=== PATIENT | female | born 2000 | race Caucasian/White ===

== ENCOUNTER 2024-02-09 05:37 | Emergency (ER) | payer BC, SELFPAY ==
--- NOTE | ~2024-02-09 | US_ITS ---
EXAMINATION: US PELVIS CLINICAL INFORMATION: Reason for Exam LLQ pain, hx ovarian cysts COMPARISON: 11/11/2013 TECHNIQUE: Ultrasound of the pelvis is performed using both transabdominal and transvaginal transducers along with Doppler. Transvaginal imaging is performed due to inadequate visualization transabdominally. FINDINGS: The retroverted uterus measures 6.7 cm in length and 4.4 x 4.9 cm in AP and transverse dimensions. Endometrial stripe measures 0.9 cm in thickness. The right ovary measures 4.0 x 2.0 x 2.7 cm. Multiple follicles are present. There is a 2.8 x 1.7 x 1.5 cm mildly hypoechoic structure in the right ovary which may represent a hemorrhagic cyst. There is an additional thick-walled appearing structure in the right ovary measuring 1.2 x 1.2 x 1.5 cm, possibly a corpus luteal cyst. The left ovary measures 3.1 x 1.6 x 2.3 cm. There is a left adnexal cyst measuring 1.0 x 0.8 x 0.7 cm. There is also a mildly hyperechoic structure in the left ovary measuring 0.7 x 0.6 x 0.9 cm, of indeterminate etiology. Small to moderate amount of free fluid is noted. US/US pelvic and transvaginal IMPRESSION: 1. Bilateral ovarian structures as described above, including a 2.8 cm mildly hypoechoic structure in the right ovary which may represent a hemorrhagic cyst, though is not classic in appearance. Follow-up ultrasound in 6-12 weeks is recommended to assess for resolution. 2. Mildly hyperechoic structure in the left ovary measuring up to 0.9 cm, of indeterminate etiology. A small dermoid cyst is a possibility, and attention on follow-up ultrasound is recommended. 3. Small to moderate amount of free fluid in the pelvis, nonspecific and which may be physiologic or could be due to ovarian cyst rupture. Electronically signed by: Regan Oswald MD 02/09/2024 09:20 AM EDT
[2024-02-09 05:43] VITALS: BP 106/59; PULSE 71; RESP 18; TEMP 36.5; O2SAT 97; BMI 21.1
[2024-02-09 06:05] LABS: Basophils Absolute Auto 0.1 X10*3/uL (0.0-0.2); Basophils Percent Auto 0.7 % (0-2); Eosinophils Absolute Auto 0.2 X10*3/uL (0.0-0.4); Hematocrit 32.8 % (37.0-47.0); Imm Gran Abs Auto 0.02 X10*3/uL (0.00-0.03); Imm Gran Pct Auto 0.2 % (0.0-0.4); Lymphocytes Percent Auto 30.7 % (20-40); MANUAL DIFF FLAG NO; Mean Corpuscular HGB Conc 33.5 g/dl (31.0-35.0); Mean Corpuscular Hemoglobin 26.4 pg (27.0-33.0); Mean Corpuscular Volume 78.8 fL (80.0-98.0); Mean Platelet Volume 9.9 fL (9.4-12.3); Monocytes Absolute Auto 0.9 X10*3/uL (0.1-1.2); Monocytes Percent Auto 8.9 % (2-11); Neutrophils Absolute Auto 5.7 x10*3/uL (2.0-8.3); Neutrophils Percent Auto 57.5 % (45-73); Platelet Count 196 X10*3/uL (160-400); Red Blood Count 4.16 X10*6/uL (4.20-5.50); Red Cell Distribution Width 14.3 % (11.0-16.0); White Blood Count 9.8 X10*3/uL (4.8-10.8)
[2024-02-09 06:20] LABS: Alanine Aminotransferase 9 U/L (0-31); Albumin Level 4.1 g/dL (3.5-5.0); Alkaline Phosphatase 55 U/L (39-117); Anion Gap 11 (12-20); Aspartate Amino Transferase 15 U/L (5-31); Bilirubin Total 0.3 mg/dL (0.0-1.0); Blood Urea Nitrogen 9 mg/dL (9-16); Carbon Dioxide 23 mmol/L (22-29); Chloride 110 mmol/L (96-108); Estimated Glomerular Filt Rate > 60; Glucose Random 97 mg/dL (60-115); Potassium 3.4 mmol/L (3.3-5.1); Sodium 141 mmol/L (135-145); Total Protein 6.8 g/dL (6.5-8.0)
--- NOTE | 2024-02-09 06:28 | ED_ITS ---
HPI - General Adult General Chief complaint: General Medical Stated complaint: Severe Menstrual cramps Time Seen by Provider: 02/09/24 06:27 Source: patient Mode of arrival: ambulatory Limitations: no limitations History of Present Illness ED Provider: erin ISSA narrative: Patient is a 24-year-old female with history of ruptured ovarian cyst 2 years ago presenting to the emergency department with complaint of left lower abdominal pain as well as lower back pain for the past few hours. States she began her menstrual period yesterday. Reports normal vaginal bleeding, denies any abnormal vaginal discharge. Also reports associated nausea and vomiting, diarrhea. Denies constipation. Denies fevers. MD complaint: abdominal pain Onset (ago): hour(s) Location: abdomen Radiation: back Severity: severe Quality: aching Pain Consistency: constant Relieving factors: none Associated symptoms: nausea/vomiting Treatments prior to arrival: none Related Data Previous Rx's ?Medication ?Instructions ?Recorded nitrofurantoin macrocrystal 100 mg 100 mg PO BID 5 days #10 caps 02/09/24 capsule Allergies Allergy/AdvReac Type Severity Reaction Status Date / Time No Known Allergies Allergy Verified 02/09/24 05:46 Review of Systems 2 Review of Systems: As per HPI. Yes all other systems are reviewed and are negative Constitutional: Constitutional: Reports as per HPI [facility] Social History Social History Advance Directives: No Advance Directives Information Provided: Yes Do you have a plan to hurt others: No Plan Physical Exam ED Vital Signs: Vital Signs - 24 hr 02/09/24 05:43 02/09/24 08:23 Temperature 97.7 F 97.8 F Pulse Rate 71 62 Respiratory Rate 18 16 Blood Pressure 106/59 L 99/59 L Pulse Oximetry 97 100 Oxygen Delivery Method Room Air Room Air BMI result Body Mass Index 21.1 Vital signs have been reviewed and appear to be correct. Blood pressure normal. Heart rate normal. Respiratory rate normal. Temperature normal. Oxygen saturation normal. Const General: cooperative, healthy appearing and no acute distress Orientation/consciousness: oriented to person, oriented to place, oriented to time and patient oriented x3 Limitations: no limitations HENMT Head: Yes normocephalic and Yes atraumatic Ears: external ears normal General nose exam: Normal external nose present Face and sinus: Yes face symmetric Mouth: oropharynx normal and moist mucous membranes Throat: Yes uvula midline Eyes Pupils: Equal, round and reactive pupils present Neck Neck: Yes normal visual inspection and Yes supple Resp Effort & Inspection: normal respiratory effort and able to speak in complete sentences Auscultation: clear to auscultation bilaterally Cardio Rate: regular rate Rhythm: regular rhythm Heart sounds: S1 normal heart sound present and S2 normal heart sound present GI Palpation (GI): Soft to palpation, Tenderness to palpation present (GI) in the LLQ, no guarding and No Rebound tenderness present Auscultation: normoactive bowel sounds General: Yes no CVA tenderness Back/Spine/Pelvis Back: no CVA tenderness Skin General skin exam: elasticity normal and turgor normal Neuro General: oriented to person, oriented to place, oriented to time, patient oriented x3, moves all extremities, no focal motor deficits and CN's II-XI intact bilaterally Cranial nerves: Yes Equal, round and reactive pupils present Cognition (Neuro): normal cognition Extrem General: Yes full ROM, Yes no pedal edema and Yes no calf tenderness Psych Mental Status: mental status grossly normal Affect: normal affect Thought process: Normal thought process present Medications Administered Discontinued Medications Generic Name Dose Route Start Last Admin Trade Name Gopiq PRN Reason Stop Dose Admin Ketorolac Tromethamine 30 mg 02/09/24 07:04 02/09/24 07:11 Ketorolac Tromethamine 30 Mg/Ml Vial IM 02/09/24 07:05 30 mg ONCE ONE Administration Ondansetron HCl 4 mg 02/09/24 07:04 02/09/24 07:11 Ondansetron Odt 4 Mg Tab.Rapdis TRANSLINGU 02/09/24 07:05 4 mg ONCE ONE Administration Medical Decision Making Medical Decision Making MDM Narrative: Patient is a 24-year-old female with history of ruptured ovarian cyst 2 years ago presenting to the emergency department with complaint of left lower abdominal pain as well as lower back pain for the past few hours. On exam patient is awake, A+Ox3, VS WNL, afebrile, normal neurological exam without focal deficits, physical exam findings as above. Given reported symptoms and physical exam findings, initial differential includes ovarian torsion, cyst, dysfunctional uterine bleeding. Labs notable for no leukocytosis, slight anemia, negative HCG. Ultrasound notable for 2.8cm hypoechoic structure right ovary which may represent hemorrhagic cyst, 0.9cm hypoechoic structure left ovary, and small-moderate free fluid. My interpretation is in agreement with the radiologist's interpretation. Given presentation, feel results most likely represent ruptured ovarian cyst. Urinalysis notable for trace leukocytes, 21- 50WBCs, 0-2 epithelials. Results discussed with patient and through shared decision making, will treat for UTI. Patient states that she does not currently have an OBGYN, will refer to Dr. Witt. Return precautions discussed at bedside. Patient verbalized understanding of and agreement with plan. Differential Diagnosis Differential Diagnoses: The differential diagnosis associated with the presentation includes As per [facility] Admission/Observation Consideration of admission/observation: Escalation of care including admission/observation considered Patient would have been admitted to the hospital had their work up had any findings where hospital admission was appropriate and their clinical presentation warranted hospital admission. Lab Data [facility] Lab Attestation statement: I reviewed the patient's lab results. As per [facility] 02/09/24 06:01 02/09/24 06:01 Labs: Lab Results 02/09/24 02/09/24 Range/Units 06:01 07:12 WBC 9.8 (4.8-10.8) X10*3/uL RBC 4.16 L (4.20-5.50) X10*6/uL Hgb 11.0 L (12.0-16.0) g/dl Hct 32.8 L (37.0-47.0) % MCV 78.8 L (80.0-98.0) fL MCH 26.4 L (27.0-33.0) pg MCHC 33.5 (31.0-35.0) g/dl RDW 14.3 (11.0-16.0) % Plt Count 196 (160-400) X10*3/uL MPV 9.9 (9.4-12.3) fL Immature Gran % (Auto) 0.2 (0.0-0.4) % Neut % (Auto) 57.5 (45-73) % Lymph % (Auto) 30.7 (20-40) % [place] % (Auto) 8.9 (2-11) % Eos % (Auto) 2.0 (0-4) % Baso % (Auto) 0.7 (0-2) % Lymph # (Auto) 3.0 (1.2-4.9) X10*3/uL [place] # (Auto) 0.9 (0.1-1.2) X10*3/uL Eos # (Auto) 0.2 (0.0-0.4) X10*3/uL Baso # (Auto) 0.1 (0.0-0.2) X10*3/uL Abs Immat Gran (auto) 0.02 (0.00-0.03) X10*3/uL Absolute Neuts (auto) 5.7 (2.0-8.3) x10*3/uL Absolute Nucleated RBC 0.000 (0.0-0.012) X10*3/uL Nucleated RBC % (auto) 0.0 (0.0-0.2) /100WBC Sodium 141 (135-145) mmol/L Potassium 3.4 (3.3-5.1) mmol/L Chloride 110 H (96-108) mmol/L Carbon Dioxide 23 (22-29) mmol/L Anion Gap 11 L (12-20) BUN 9 (9-16) mg/dL Creatinine 0.80 (0.5-1.4) mg/dL Estim Creat Clear Calc 85.0 Estimated GFR > 60 Random Glucose 97 (60-115) mg/dL Calcium 9.0 (8.4-10.2) mg/dL Total Bilirubin 0.3 (0.0-1.0) mg/dL AST 15 (5-31) U/L ALT 9 (0-31) U/L Alkaline Phosphatase 55 (39-117) U/L Total Protein 6.8 (6.5-8.0) g/dL Albumin 4.1 (3.5-5.0) g/dL Beta HCG, Quant < 2 mIU/mL Urine Color RED Urine Appearance Hazy Urine pH 6.0 (5.0-9.0) Ur Specific [place] 1.015 (1.005-1.025) Urine Protein 30 (1+) H (Neg-Trace) mg/dL Urine Glucose (UA) Negative (Negative) mg/dL Urine Ketones Negative (Negative) mg/dL Urine Blood Large (3+) H (Negative) Urine Nitrite Negative (Negative) Ur Leukocyte Esterase Trace H (Negative) Urine RBC >20 H (0-2) /HPF Urine WBC 21-50 H (0-5) /HPF Ur Squamous Epith Cells 0-2 (0-2) /HPF Urine Bacteria Trace (None Seen) Hyaline Casts 0-2 (0-2) /LPF Independent Interpretation I performed an independent interpretation of an: Ultrasound Interpretation: Ultrasound notable for 2.8cm hypoechoic structure right ovary which may represent hemorrhagic cyst, 0.9cm hypoechoic structure left ovary, and small- moderate free fluid. Radiology Impression Discussion of test interpretation with radiology: I have reviewed the radiologist's reading. Radiologist Impression: US/US pelvic and transvaginal IMPRESSION: 1. Bilateral ovarian structures as described above, including a 2.8 cm mildly hypoechoic structure in the right ovary which may represent a hemorrhagic cyst, though is not classic in appearance. Follow-up ultrasound in 6-12 weeks is recommended to assess for resolution. 2. Mildly hyperechoic structure in the left ovary measuring up to 0.9 cm, of indeterminate etiology. A small dermoid cyst is a possibility, and attention on follow-up ultrasound is recommended. 3. Small to moderate amount of free fluid in the pelvis, nonspecific and which may be physiologic or could be due to ovarian cyst rupture. External Record Review External record reviewed: Inpatient record, Office record and Outpatient record Prescription Management I considered prescription management with: Antibiotic Discharge Plan Discharge Clinical Impression: Abdominal pain, Urinary tract infection Patient Disposition: Home, Self-Care Instructions: Ovarian Cyst (ED), Acute Abdominal Pain (DC), Ruptured Ovarian Cyst (ED), Urinary Tract Infection in Women (DC) Additional Instructions: You were evaluated in the emergency department today for abdominal pain which is likely due to a ruptured ovarian cyst. We recommend that you have a follow-up ultrasound in 6-12 weeks. You are being referred to Dr. Witt, [employer], please call his office to schedule an appointment. You are being treated for a urinary tract infection with antibiotics, please complete the full course as prescribed. Return to the emergency department if you develop worsening pain, vaginal bleeding soaking through more than 1 pad per hour, abnormal vaginal discharge, fever or any other concerning symptoms. Prescriptions: New nitrofurantoin macrocrystal 100 mg capsule 100 mg PO BID 5 Days Qty: 10 0RF Rx Instructions: must administer with a meal/food Referrals: Ronald Witt MD [Physician] - Print Language: Greenlandic
[2024-02-09 06:57] LABS: HCG Quantitative < 2 mIU/mL
[2024-02-09] MEDS: Ketorolac Tromethamine 30 MG/ML VIAL IM (07:11)
[2024-02-09] MEDS: Ondansetron ODT 4 MG TAB.RAPDIS TRANSLINGU (07:11)
[2024-02-09 07:18] LABS: Appearance Urine Hazy; Color Urine RED; Glucose Urine UA Negative (Negative); Leukocyte Esterase Urine Trace (Negative); Nitrite Urine Negative (Negative); Specific Gravity - Urine 1.015 (1.005-1.025); UMIC TRIGGER UACC YES; Urine Blood Large (3+) (Negative); Urine Ketones Negative (Negative); Urine Protein 30 (1+) mg/dL (Neg-Trace)
[2024-02-09 07:35] LABS: Bacteria Urine Trace (None Seen); Hyaline Casts Urine 0-2 /LPF (0-2); RBC Urine >20 /HPF (0-2); Squamous Epithelial Cell Urine 0-2 /HPF (0-2); UACC Culture Trigger YES; WBC Urine 21-50 /HPF (0-5)
[2024-02-09 08:23] VITALS: BP 99/59; PULSE 62; RESP 16; TEMP 36.6; O2SAT 100
[2024-02-09 09:53] VITALS: BP 100/68; PULSE 83; RESP 16; TEMP 36.8; O2SAT 98
[2024-02-09 10:05] VITALS: BP 100/68; PULSE 83; RESP 16; TEMP 36.8; O2SAT 98
== END 2024-02-09 10:06 | disposition home or self-care (01) ==
PROVIDERS: Registered Nurse Emergency; Emergency Provider Emergency Medicine
DX: N39.0 Urinary tract infection, site not specified (principal); R10.32 Left lower quadrant pain; R11.2 Nausea with vomiting, unspecified
CPT/HCPCS: 36415; 76830; 76856; 80053; 81001; 84702; 85025; 87086; 96372; 99283; 99284; J1885

== ENCOUNTER 2024-08-18 18:08 | Emergency (ER) | payer BC, SELFPAY ==
[2024-08-18 18:14] VITALS: BP 111/73; PULSE 105; RESP 18; TEMP 36.6; O2SAT 98; BMI 19.2
--- NOTE | 2024-08-18 18:15 | ECG_ITS ---
Test Reason : anxiety Blood Pressure : */* mmHG Vent. Rate : 95 BPM Atrial Rate : 95 BPM P-R Int : 96 ms QRS Dur : 78 ms QT Int : 386 ms P-R-T Axes : -15 61 18 degrees QTcB Int : 485 ms Sinus rhythm with sinus arrhythmia with short OK Nonspecific ST and T wave abnormality Borderline ECG No previous ECGs available Referred By: Janell Schmitz Electronically Signed By: SANDRA OLVERA
[2024-08-18 18:36] LABS: MANUAL DIFF FLAG NO
[2024-08-18 18:52] LABS: Basophils Absolute Auto 0.1 X10*3/uL (0.0-0.2); Basophils Percent Auto 0.9 % (0-2); Eosinophils Percent Auto 0.3 % (0-4); Hematocrit 35.6 % (37.0-47.0); Hemoglobin 11.9 g/dl (12.0-16.0); Imm Gran Abs Auto 0.07 X10*3/uL (0.00-0.03); Imm Gran Pct Auto 1.1 % (0.0-0.4); Lymphocytes Absolute Auto 2.5 X10*3/uL (1.2-4.9); Lymphocytes Percent Auto 37.5 % (20-40); Mean Corpuscular HGB Conc 33.4 g/dl (31.0-35.0); Mean Corpuscular Hemoglobin 25.8 pg (27.0-33.0); Mean Corpuscular Volume 77.1 fL (80.0-98.0); Mean Platelet Volume 10.1 fL (9.4-12.3); Monocytes Absolute Auto 0.6 X10*3/uL (0.1-1.2); Monocytes Percent Auto 8.7 % (2-11); NRBC Pct Auto 0.3 /100WBC (0.0-0.2); Neutrophils Absolute Auto 3.4 x10*3/uL (2.0-8.3); Neutrophils Percent Auto 51.5 % (45-73); Platelet Count 246 X10*3/uL (160-400); Red Blood Count 4.62 X10*6/uL (4.20-5.50); Red Cell Distribution Width 15.2 % (11.0-16.0); White Blood Count 6.5 X10*3/uL (4.8-10.8)
[2024-08-18 18:58] LABS: Alanine Aminotransferase 16 U/L (0-31); Albumin Level 4.5 g/dL (3.5-5.0); Alkaline Phosphatase 50 U/L (39-117); Anion Gap 14 (12-20); Aspartate Amino Transferase 21 U/L (5-31); Bilirubin Total 0.6 mg/dL (0.0-1.0); Blood Urea Nitrogen 7 mg/dL (9-16); Calcium 9.1 mg/dL (8.4-10.2); Carbon Dioxide 19 mmol/L (22-29); Chloride 109 mmol/L (96-108); Estimated Glomerular Filt Rate > 60; Glucose Random 95 mg/dL (60-115); Magnesium 2.1 mg/dL (1.6-2.6); Potassium 3.4 mmol/L (3.3-5.1); Sodium 139 mmol/L (135-145); Total Protein 8.1 g/dL (6.5-8.0)
[2024-08-18 19:04] LABS: HCG Quantitative < 2 mIU/mL
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
[2024-08-18] MEDS: LORazepam 1 MG TABLET PO (19:56)
[2024-08-18 21:36] LABS: D Dimer High Sensitivity < 150 NG/ML
--- NOTE | 2024-08-18 21:53 | PC.NURSE ---
Pt reports decreased anxiety and feeling better after being medicated. Monitoring is ongoing.
[2024-08-18 22:06] VITALS: BP 105/66; PULSE 78; RESP 14; TEMP 36.6; O2SAT 99
== END 2024-08-18 22:07 | disposition home or self-care (01) ==
PROVIDERS: Physician Assistant Medical; Emergency Provider Emergency Medicine
DX: F41.9 Anxiety disorder, unspecified (principal); R06.4 Hyperventilation; Z79.899 Other long term (current) drug therapy
CPT/HCPCS: 36415; 80053; 83735; 84702; 85025; 85379; 93005; 99284; 99285; S9485

== ENCOUNTER → 2024-08-18 18:15 | Outpatient (BNV) | payer BC, SELFPAY | PROVIDERS: Emergency Provider Emergency Medicine; Visit Provider Internal Medicine | DX: I45.6 Pre-excitation syndrome (principal) | CPT/HCPCS: 93010 ==

== ENCOUNTER 2024-09-04 00:08 | Emergency (ER) | payer BC, SELFPAY ==
[2024-09-04 00:13] VITALS: BP 103/67; PULSE 80; O2SAT 100
[2024-09-04 00:19] VITALS: BP 99/59; PULSE 81; RESP 18; TEMP 36.4; O2SAT 100; BMI 20.2
--- NOTE | 2024-09-04 00:34 | ECG_ITS ---
Test Reason : CHEST PAIN Blood Pressure : */* mmHG Vent. Rate : 61 BPM Atrial Rate : 61 BPM P-R Int : 114 ms QRS Dur : 84 ms QT Int : 464 ms P-R-T Axes : -3 72 58 degrees QTcB Int : 467 ms Normal sinus rhythm Normal ECG When compared with ECG of 18-Aug-2024 18:24, Vent. rate has decreased by 34 bpm Nonspecific T wave abnormality no longer evident in Inferior leads Referred By: Generic ED Physician Electronically Signed By: LEOBARDO KENDALL MD
--- NOTE | 2024-09-04 00:36 | PC.NURSE ---
attempted to bring pt to bathroom for a urine and gown change and pt was pale and dizzy, pt has completed ns 500cc.
[2024-09-04 01:12] LABS: Basophils Absolute Auto 0.1 X10*3/uL (0.0-0.2); Basophils Percent Auto 1.1 % (0-2); Eosinophils Absolute Auto 0.2 X10*3/uL (0.0-0.4); Eosinophils Percent Auto 3.2 % (0-4); Hematocrit 32.7 % (37.0-47.0); Hemoglobin 11.2 g/dl (12.0-16.0); Imm Gran Abs Auto 0.01 X10*3/uL (0.00-0.03); Imm Gran Pct Auto 0.2 % (0.0-0.4); Lymphocytes Absolute Auto 3.7 X10*3/uL (1.2-4.9); Lymphocytes Percent Auto 56.4 % (20-40); MANUAL DIFF FLAG NO; Mean Corpuscular HGB Conc 34.3 g/dl (31.0-35.0); Mean Corpuscular Hemoglobin 26.1 pg (27.0-33.0); Mean Corpuscular Volume 76.2 fL (80.0-98.0); Mean Platelet Volume 10.4 fL (9.4-12.3); Monocytes Absolute Auto 0.4 X10*3/uL (0.1-1.2); Monocytes Percent Auto 6.6 % (2-11); Neutrophils Absolute Auto 2.1 x10*3/uL (2.0-8.3); Neutrophils Percent Auto 32.5 % (45-73); Platelet Count 168 X10*3/uL (160-400); Red Blood Count 4.29 X10*6/uL (4.20-5.50); Red Cell Distribution Width 14.9 % (11.0-16.0); White Blood Count 6.5 X10*3/uL (4.8-10.8)
[2024-09-04 01:24] LABS: Anion Gap 8 (12-20); Blood Urea Nitrogen 15 mg/dL (9-16); Calcium 8.3 mg/dL (8.4-10.2); Carbon Dioxide 21 mmol/L (22-29); Chloride 113 mmol/L (96-108); Creatinine Clr Calc Pharmacy 95.8; Estimated Glomerular Filt Rate > 60; Glucose Random 95 mg/dL (60-115); Potassium 3.2 mmol/L (3.3-5.1); Sodium 139 mmol/L (135-145)
[2024-09-04 01:32] LABS: Troponin-I High Sensitivity < 2.7 ng/L (<3.5-17.0)
--- NOTE | 2024-09-04 01:59 | ED.CHESTPAIN ---
HPI - Chest Pain General Chief Complaint: Chest Pain Stated Complaint: Mixed weed with clonapin experiencing cp Time Seen by Provider: 09/04/24 01:59 History of Present Illness ED Provider: Suze ISSA narrative: The patient is a 24-year-old female who was seen here by me 17 days ago for anxiety and panic related symptoms. She was medically cleared in the emergency department and was seen by the care team and discharged with outpatient referrals. The patient has subsequently followed up with a CHD and was recently prescribed medications including Zoloft, clonazepam, and propranolol. These medications were 1st prescribed less than a week ago. The patient has been advised against using alcohol while on clonazepam. Tonight she tried vaping with a marijuana product. She says that almost immediately after her 1st vaping she started to feel very anxious and felt her heart was racing. She tried to manage the symptoms of anxiety and shortness of breath and chest pain but ultimately felt she needed to call an ambulance. The ambulance brought her to the emergency room and since arriving here her symptoms have resolved. She is now feeling much better. Related Data Previous Rx's ?Medication ?Instructions ?Recorded nitrofurantoin macrocrystal 100 mg 100 mg PO BID 5 days #10 caps 02/09/24 capsule lorazepam 1 mg tablet 1 mg PO BID PRN anxiety #10 tabs 08/18/24 Allergies Allergy/AdvReac Type Severity Reaction Status Date / Time No Known Allergies Allergy Verified 09/04/24 00:23 Review of Systems Review of Systems: Yes all other systems are reviewed and are negative PMFSH Social History Social History Advance Directives: No Advance Directives Information Provided: No Do you have a plan to hurt others: No Plan Physical Exam Vital Signs: Vital Signs: Last Vital Signs Temp 0 F L 09/04/24 03:00 Pulse 0 L 09/04/24 03:00 Resp 0 L 09/04/24 03:00 BP 0/0 L 09/04/24 03:00 Pulse Ox 0 L 09/04/24 03:00 O2 Del Method Room Air 09/04/24 03:00 BMI result Body Mass Index 20.2 Const: Other: The patient is a slim 24-year-old who was awake and alert. She looks somewhat fatigued but not in acute distress. She did not seem to have ongoing panicking behavior. HEENT: Other: Head and the face are unremarkable. The face is symmetrical. Mucous membranes moist. Eyes: General: appearance normal, both eyes and all related structures Conjunctivae: conjunctivae normal Sclerae: sclerae normal Neck: Neck: Yes full ROM Resp: Effort & Inspection: normal respiratory effort and prolonged expiratory phase Cardio: Rate: regular rate Rhythm: regular rhythm Heart sounds: S1 normal heart sound present and S2 normal heart sound present GI: Other: Abdomen is soft and nontender Skin: Other: Skin is dry and unremarkable Neuro: Other: The patient is awake, alert, oriented, appropriate. Cranial nerves are grossly intact. She moves her extremities normally and appropriately. Extrem: Other: No calf swelling or tenderness, no peripheral edema, no asymmetry, no tenderness. Psych: Other: The patient is awake and alert with a calm demeanor. She makes good eye contact. She is not suicidal. Medical Decision Making Medical Decision Making [facility] Narrative: The patient is a 24-year-old female with a history of depression and panic attacks who was recently started on Zoloft, lorazepam, and propranolol. She became acutely anxious and panicky after smoking marijuana tonight. Her symptoms seemed to have improved a lot without any specific intervention. The patient is not suicidal. I think she is medically clear. She is PERC negative. I also think she does not require care team evaluation today. The patient will be discharged to follow up with the regular providers. Lab Data 09/04/24 01:07 09/04/24 01:07 Labs: Lab Results 09/04/24 Range/Units 01:07 WBC 6.5 (4.8-10.8) X10*3/uL RBC 4.29 (4.20-5.50) X10*6/uL Hgb 11.2 L (12.0-16.0) g/dl Hct 32.7 L (37.0-47.0) % MCV 76.2 L (80.0-98.0) fL MCH 26.1 L (27.0-33.0) pg MCHC 34.3 (31.0-35.0) g/dl RDW 14.9 (11.0-16.0) % Plt Count 168 D (160-400) X10*3/uL MPV 10.4 (9.4-12.3) fL Immature Gran % (Auto) 0.2 (0.0-0.4) % Neut % (Auto) 32.5 L (45-73) % Lymph % (Auto) 56.4 H (20-40) % [place] % (Auto) 6.6 (2-11) % Eos % (Auto) 3.2 (0-4) % Baso % (Auto) 1.1 (0-2) % Lymph # (Auto) 3.7 (1.2-4.9) X10*3/uL [place] # (Auto) 0.4 (0.1-1.2) X10*3/uL Eos # (Auto) 0.2 (0.0-0.4) X10*3/uL Baso # (Auto) 0.1 (0.0-0.2) X10*3/uL Abs Immat Gran (auto) 0.01 (0.00-0.03) X10*3/uL Absolute Neuts (auto) 2.1 (2.0-8.3) x10*3/uL Absolute Nucleated RBC 0.000 (0.0-0.012) X10*3/uL Nucleated RBC % (auto) 0.0 (0.0-0.2) /100WBC Sodium 139 (135-145) mmol/L Potassium 3.2 L (3.3-5.1) mmol/L Chloride 113 H (96-108) mmol/L Carbon Dioxide 21 L (22-29) mmol/L Anion Gap 8 L (12-20) BUN 15 (9-16) mg/dL Creatinine 0.71 (0.5-1.4) mg/dL Estim Creat Clear Calc 95.8 Estimated GFR > 60 Random Glucose 95 (60-115) mg/dL Calcium 8.3 L D (8.4-10.2) mg/dL Troponin I High Sens < 2.7 (<3.5-17.0) ng/L Discharge Plan Discharge Clinical Impression: Panic attack Patient Disposition: Home, Self-Care Additional Instructions: Your evaluation in the emergency room seems reassuring. Please continue your current prescribed medications. I would avoid marijuana and other vaping products for a long time. Please follow up with your regular prescribes. Return to the emergency room if you feel significantly worse. Prescriptions: No Action lorazepam 1 mg tablet 1 mg PO BID PRN (Reason: anxiety) Qty: 10 0RF nitrofurantoin macrocrystal 100 mg capsule 100 mg PO BID 5 Days Qty: 10 0RF Rx Instructions: must administer with a meal/food Interventions: ED Discharge Assessment Last Done: 09/04/24 03:00 Discharge Date/Time: 09/04/24 02:45 Print Language: Comoran
[2024-09-04 03:00] VITALS: BP 0/0; PULSE 0; RESP 0; TEMP -17.7; TEMP 0; O2SAT 0
== END 2024-09-04 02:45 | disposition home or self-care (01) ==
PROVIDERS: Emergency Provider Emergency Medicine
DX: F41.0 Panic disorder [episodic paroxysmal anxiety] (principal); F41.9 Anxiety disorder, unspecified; R06.02 Shortness of breath; F12.90 Cannabis use, unspecified, uncomplicated
CPT/HCPCS: 36415; 80048; 84484; 85025; 93005; 99283

== ENCOUNTER → 2024-09-04 00:34 | Outpatient (BNV) | payer BC, SELFPAY | PROVIDERS: Emergency Provider Emergency Medicine; Visit Provider Internal Medicine Cardiovascular Disease | DX: R07.9 Chest pain, unspecified (principal) | CPT/HCPCS: 93010 ==

== ENCOUNTER 2025-01-27 13:27 | Outpatient (AMB) | payer BC, SELFPAY ==
--- NOTE | 2025-01-27 13:29 | A.OFFPC_ITS ---
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 Required: No Accompanied by: Self / Same As Patient Is last menstrual period known: No Post menopausal: No Patient : No Allergies No Known Allergies Allergy (Verified 01/27/25 13:38) Medication List - Last Reconciled 01/27/25 by Lizette Toney PA-C hydroxyzine HCl 25 mg PO BEDTIME sertraline 50 mg PO DAILY Tobacco use date assessed: 01/27/25 Dental Screening Dental Screen Date: 01/27/25 Did you have a dental visit in the last 12 months?: Yes Did you have a dental problem in the last 6 months where you did not have access to dental care?: No Was dental information given to patient?: Patient has dentist HPI MAILROOM PERSONNEL // Requesting a PE HPI Details 24 year old female coming to the office for the first time. In review of the notes, patient was seen several times this year in the ED for panic attacks. Presenting for a wellness visit and management of anxiety, depression, and gastroesophageal reflux disease. Anxiety and depression are managed with sertraline and hydroxyzine, with noted improvement since earlier in the year. She has a psychiatrist and therapist, with counseling sessions adjusted as needed. Gastroesophageal reflux disease is managed with dietary changes and famotidine, though recent vomiting occurred. [facility] Medical History (Updated 01/27/25 @ 16:50 by Lizette Toney PA-C) Ovarian cyst Family History (Updated 01/27/25 @ 13:51 by Lizette Toney PA-C) Maternal Grandmother Heart problem Paternal Grandmother Lung cancer Other Diabetes 1.5, managed as type 2 Social History Household Members: Spouse Both parents involved: No Caregiver staying overnight: No Housing: House Are you a primary long term care administrator to a significant other at home: No Do you presently have visiting nurse or other home services: No Alcohol intake: never Patient Tobacco Use Status: Never used Tobacco e-Cigarette/Vaping Use: Currently Using Second Hand Smoke Exposure: No Substance Use Type: Marijuana service: No Current occupational status: employed Cognitive needs: No Hearing needs: No Vision needs: Yes (pt should be wearing glasses ) Female Reproductive History Menstrual Duration of menses: 6-7 days Date of last menstrual period: 01/06/25 control method: none Total pregnancies: 0 History of abnormal pap smear: No Questionnaire PHQ-9 Over the last 2 weeks, how often have you been bothered by any of the following problems? 1. Little interest or pleasure in doing things: not at all 2. Feeling down, depressed, or hopeless: several days 3. Trouble falling or staying asleep, or sleeping too much: not at all 4. Feeling tired or having little energy: several days 5. Poor appetite or overeating: several days 6. Feeling bad about yourself - or that you are a failure or have let yourself or your family down: several days 7. Trouble concentrating on things, such as reading the newspaper or watching television: not at all 8. Moving or speaking so slowly that other people could have noticed. Or the opposite - being so fidgety or restless that you have been moving around a lot more than usual: not at all 9. Thoughts that you would be better off or of hurting yourself in some way: not at all Total score: 4 Depression Screening Interpretation: Positive Depression Screening Follow-up: Existing condition and In treatment Depression Screening Done: Yes 98998 - PHQ-9 Billing: Yes Source: Developed by Drs. Jeb Wagner, Mecca Leigh, Ousmane Thomson and colleagues, with an educational latia from [employer]. Thrive Questionnaire Date Thrive assessed: 01/27/25 I am a: Patient What is your living situation today?: I have a steady place to live Within the past 12 months, did the food you bought not last and you didn't have the money to get more?: Never true Within the past 12 months, did you worry whether your food would run out before you got money to buy more?: Never true Do you have trouble paying for medicines?: No Do you have trouble getting transportation to medical appointments?: No Do you have trouble paying your heating and electricity bill?: No Do you have trouble taking care of your child, family member or friend?: No Do you have trouble with day-to-day activities such as bathing, preparing meals, shopping, managing finances, etc.?: No Are you currently unemployed and looking for a job?: No Are you interested in more education?: Yes Please select the resources that you would like help with: None Currently or been in a relationship where the following occur: No concerns reported THRIVE Score: 0 AUDIT C Alcohol Use Questionnaire (AUDIT-C) 1. How often do you have a drink containing alcohol?: Never 3. How often do you have six or more drinks on one occasion?: Never Total Score: 0 RONALDO-7 AMB Questionnaire RONALDO-7 Date RONALDO - 7 assessed: 01/27/25 Feeling nervous, anxious, or on edge: 1 = Several days Not being able to stop or control worryin = Several days Worrying too much about different things: 1 = Several days Trouble relaxin = Several days Being so restless that it is hard to sit still: 1 = Several days Becoming easily annoyed or irritable: 1 = Several days Feeling afraid as if something awful might happen: 1 = Several days Total RONALDO-7 score (0-4 normal; 5-9 mild; 10-14 moderate; 15-21 severe): 7 Source: Developed by Drs. Jeb Wagner, Mecca Leigh, Ousmane Thomson and colleagues, with an educational latia from [employer]. RONALDO-7 Assessment Billing RONALDO-7 Assessment Tool: RONALDO-7 Assessment 11866 Review of Systems Const Denies body aches, Denies chills, Denies fever(s), Reports headache(s) (w/ eye strain) and Denies poor appetite Eyes Reports as per HPI ENT Denies dysphagia, Denies dizziness, Reports headache(s) (w/ eye strain) and Denies odynophagia Card Denies chest pain, Denies syncope, Denies edema, Denies irregular heart rhythm, Denies lightheadedness and Denies dyspnea Resp Denies cough and Denies dyspnea GI Reports abdominal pain (epigastric pain ), Denies constipation, Denies dysphagia, Reports dyspepsia, Reports heartburn, Denies diarrhea, Reports nausea, Denies odynophagia and Reports vomiting Reports no additional complaints Musc Reports no additional complaints and Denies abnormal gait Skin/Breast Reports system reviewed and no additional complaints, except as documented Neuro Denies abnormal gait, Denies dizziness, Denies syncope and Reports headache(s) (w/ eye strain) Psych Reports no additional complaints Physical exam (Primary Care) Vital Signs: Last Vital Signs Pulse 87 01/27/25 13:32 BP 122/64 01/27/25 13:32 Pulse Ox 98 01/27/25 13:32 Oxygen Delivery Method Room Air 01/27/25 13:32 BMI result Body Mass Index 26.2 Tobacco/Smoking Status: Tobacco use Status Tobacco use date assessed 01/27/25 01/27/25 13:38 Patient Tobacco Use Status Never used Tobacco 01/27/25 13:40 e-Cigarette/Vaping Use Currently Using 01/27/25 13:40 PHQ-9: PHQ-9 Score PHQ-9: Total score 4 01/27/25 13:49 Depression Screening Interpretation: Positive Depression Screening Follow-up: Existing condition and In treatment Thrive Assessment: Date of Thrive Assessment Date Thrive assessed 01/27/25 01/27/25 13:38 Currently or been in a relationship where the following occur: No concerns reported Const General: cooperative, healthy appearing, comfortable and no acute distress Orientation/consciousness: patient oriented x3 HENMT Head: Yes normocephalic Ears: hearing grossly normal bilaterally General nose exam: Normal external nose present Face and sinus: Yes normal facial exam and Yes sinuses nontender Mouth: Normal oral and palatal mucosa present and tongue normal Throat: Yes posterior oropharynx normal Eyes General: appearance normal, both eyes and all related structures Conjunctivae: conjunctivae normal Pupils: Equal, round and reactive pupils present EOM: EOMs intact bilaterally and No Nystagmus present Neck Neck: Yes full ROM and Yes no lymphadenopathy Chest Chest palpation & inspection: normal inspection of the chest Resp Effort & Inspection: normal respiratory effort Auscultation: clear to auscultation bilaterally, no crackles, no rales, no rhonchi and no wheezes Cardio Rate: regular rate Rhythm: regular rhythm Peripheral pulses: radial pulses present and dorsalis pedis present GI Inspection: Yes normal to inspection and No Abdominal wall edema Palpation (GI): Soft to palpation, not firm and nontender Auscultation: normal bowel sounds Rectal Exam - Female: deferred General: Yes no CVA tenderness Back/Spine/Pelvis Back: no CVA tenderness Skin General skin exam: no rashes or lesions noted Neuro General: patient oriented x3 Cranial nerves: Yes Equal, round and reactive pupils present, Yes Midline tongue present, Yes Ability to bilaterally elevate shoulders present and No Nystagmus present Gait exam (Neuro): Normal gait present Extrem General: Yes normal to inspection, Yes full ROM and No edema Psych Speech and movement: Normal speech and movement present Affect: normal affect Attitude: cooperative Insight: Good insight present (Psych) Judgement: Good judgement present (Psych) Coding Level of Care Code New Pt Prev Care 18-39yr([id number] Diagnoses Annual physical exam Z00.00 Depression F32.A Anxiety F41.9 Eye strain, bilateral H53.10 GERD (gastroesophageal reflux disease) K21.9 Irregular menses N92.6 Additional Codes RONALDO-7 Assessment Billing - RONALDO-7 Assessment Tool: RONALDO-7 Assessment 07399 ([id number]) PHQ-9 - 70950 - PHQ-9 Billing: Yes ([id number]) Assessment & Plan Assessment & Plan (1) Annual physical exam: Code(s): Z00.00 - Encounter for general adult medical examination without abnormal findings Category: Medical Plan: Patient is up-to-date on all recommended vaccinations for her age. She is due for a Pap smear and has not happened in the past and referral was placed to gynecology. I did order for updated blood work including cholesterol as she do es have a family history of elevated cholesterol. Healthy diet and regular exercise is encouraged. Plan to follow up in 3 months or sooner as needed (2) Depression: Comment: [employer] for medication / Griselda Solis biweekly for counseling Code(s): F32.A - Depression, unspecified Category: Medical Plan: Patient is currently following with a psychiatrist through [facility] for depression and anxiety. She is managed on hydroxyzine nightly and sertraline daily. She also follows with a counselor by weekly or sooner as needed. She feels this regimen is helpful for her and declines any additional help at this time. (3) Anxiety: Code(s): F41.9 - Anxiety disorder, unspecified Category: Medical Plan: See above (4) Eye strain, bilateral: Code(s): H53.10 - Unspecified subjective visual disturbances Category: Medical Plan: Patient reports worsening eye strain bilaterally when looking at the phone and throughout the day. Requesting a referral to eye doctor which has been placed today. (5) GERD (gastroesophageal reflux disease): Code(s): K21.9 - Gastro-esophageal reflux disease without esophagitis Category: Medical Plan: Avoid trigger foods such as citrus, tomato products, soda, caffeine, spicy foods and other foods that may be irritating to your stomach. Avoid laying flat 3-4 hours after eating and elevate the head of the bed 30 degrees to prevent acid from moving into the esophagus. Plan to trial famotidine 20 mg daily and follow up in 3 months. (6) Irregular menses: Code(s): N92.6 - Irregular menstruation, unspecified Category: Medical Plan: Patient having irregular menses and is due for a Pap smear and referral was placed to gynecology today. Plan The patient will maintain her current regimen of sertraline and hydroxyzine for anxiety and depression, with continued psychiatric and therapeutic support. Referrals have been made for gynecological and ophthalmological evaluations to address menstrual and vision concerns, respectively. Dietary adjustments and famotidine are recommended for managing gastroesophageal reflux disease, with a follow-up scheduled in three months to evaluate symptom control and review blood work results. This note was constructed using voice recognition software. While every effort has been made to ensure accuracy and plant operator/shift supervisor, still areas may have been included sometimes these areas may affect the content or meeting of the given symptoms. Total time spent caring for the patient today was 30 minutes. This includes time spent before the visit reviewing the chart, time spent during the visit, and time spent after the visit and documentation. Patient was informed and verbally consented to the use of an ambient scribe for clinic note documentation during this visit. Orders: Orders TSH reflex Free T4 Today Z13.29 - Encounter for screening for other suspected endocrine disorder Vitamin B12 and Folate Today Z13.21 - Encounter for screening for nutritional disorder Free T4 (Free Thyroxine) Today Z00.00 - Encounter for general adult medical examination without abnormal findings Lipid Panel Today Z13.220 - Encounter for screening for lipoid disorders Vitamin D 25-OH Total Today Z13.21 - Encounter for screening for nutritional disorder Comprehensive Met. Panel Today N92.6 - Irregular menstruation, unspecified, Z00.00 - Encounter for general adult medical examination without abnormal findings Complete Blood Count Auto Diff Today N92.6 - Irregular menstruation, unspecified, Z00.00 - Encounter for general adult medical examination without abnormal findings Referrals ETIOLOGY TEACHER Referral N92.6 - Irregular menstruation, unspecified, Z12.4 - Encounter for screening for malignant neoplasm of cervix Optometry Referral H53.10 - Unspecified subjective visual disturbances Medications: New famotidine 20 mg PO DAILY 90 tabs 0RF Discontinued nitrofurantoin macrocrystal must administer with a meal/food Discontinued Reason: Patient no longer taking 100 mg PO BID 5 days 10 caps 0RF
[2025-01-27 13:32] VITALS: BP 122/64; PULSE 87; O2SAT 98; BMI 26.2
== END 2025-01-27 14:13 | disposition home or self-care (01) ==
LOC: HO.HMCH 13:28
DX: Z00.00 Encounter for general adult medical examination without abnormal findings (principal); F32.A Depression, unspecified; F41.9 Anxiety disorder, unspecified; H53.10 Unspecified subjective visual disturbances; K21.9 Gastro-esophageal reflux disease without esophagitis; N92.6 Irregular menstruation, unspecified

== ENCOUNTER → 2025-01-27 13:27 | Outpatient (BNVA) | payer BC, SELFPAY | DX: Z00.00 Encounter for general adult medical examination without abnormal findings (principal); F41.9 Anxiety disorder, unspecified; F32.A Depression, unspecified; K21.9 Gastro-esophageal reflux disease without esophagitis; H53.10 Unspecified subjective visual disturbances; N92.6 Irregular menstruation, unspecified | CPT/HCPCS: 96127 ==